=== PATIENT | female | born 1945 | race Caucasian/White ===

== ENCOUNTER → 2017-01-19 | Outpatient (CLI) | payer MEDICARE, OTHER ==
[~2017-01-19] MED LIST: Aspirin PO; Atorvastatin Calcium PO; BISO1TAB3 PO; Clopidogrel Bisulfate PO; ESTRADIOL 1 MG PO; NITR0.4T SL; Non Medication Item MC; SULF1TAB35 PO; [UNRECOGNIZED DRUG - OTHER] IM
--- NOTE | 2017-01-21 10:59 | Diagnostic Imaging Report ---
Bilateral screening mammogram 2D views with tomosynthesis The current study was also evaluated with a Computer Aided Detection (CAD) system. INDICATION: Screening. No current complaints stated on the questionnaire. COMPARISON: 12/03/15 FINDINGS: The breasts are composed of heterogeneously dense parenchyma which may decrease mammographic sensitivity. Benign-appearing calcifications are seen. Allowing for technique and positional differences, no suspicious change is seen. IMPRESSION: Dense breasts with no definite change. ACR BI-RADS Category 2: Benign findings. Result letter will be mailed to the patient. Note: At least 10% of breast cancer is not imaged by mammography. Dictated by: Dictated on workstation # [id number]
== END ==
LOC: RAD 08:53
PROVIDERS: ATTEND Family Medicine
DX: Z12.31 Encounter for screening mammogram for malignant neoplasm of breast (principal)
CPT/HCPCS: 77067

== ENCOUNTER 2017-08-23 12:48 | Emergency (ER) | payer MEDICARE, OTHER ==
[~2017-08-23] VITALS: Ht 162.6 cm; Wt 59.0 kg
[2017-08-23] MEDS ORDERED: ASPIRIN 81 MG CHEW (CHILDREN'S ASA) PO ONE (13:15)
[2017-08-23 13:21] LABS: BASOPHILS # (AUTO) 0.1 10^3/uL (0.0-0.1); BASOPHILS % (AUTO) 1 % (0-10); EOSINOPHILS # (AUTO) 0.1 10^3/uL (0.0-0.3); EOSINOPHILS % (AUTO) 1 % (0-10); HEMATOCRIT 43 % (35-52); HEMOGLOBIN 14.5 G/DL (11.5-16.0); LYMPHOCYTES # (AUTO) 2.3 X 10^3 (1.0-4.0); LYMPHOCYTES % (AUTO) 31 % (12-44); MEAN CORPUSCULAR HEMOGLOBIN 30 PG (25-34); MEAN CORPUSCULAR HGB CONC 34 G/DL (32-36); MEAN CORPUSCULAR VOLUME 90 FL (80-99); MEAN PLATELET VOLUME 10.8 FL (7.4-10.4); MONOCYTES # (AUTO) 0.6 X 10^3 (0.0-1.0); MONOCYTES % (AUTO) 8 % (0-12); NEUTROPHILS # (AUTO) 4.3 X 10^3 (1.8-7.8); NEUTROPHILS % (AUTO) 59 % (42-75); PLATELET COUNT 300 10^3/uL (130-400); RED BLOOD COUNT 4.77 10^6/uL (4.35-5.85); RED CELL DISTRIBUTION WIDTH 13.2 % (10.0-14.5); WHITE BLOOD COUNT 7.3 10^3/uL (4.3-11.0)
--- NOTE | 2017-08-23 13:25 | ED Neurological Problem ---
General Chief Complaint: Dizziness/Syncope Stated Complaint: DIZZY SPELLS,CHEST DISCOMFORT Nursing Triage Note: pt reports episodes of dizziness x2 weeks. pt reports episode of lightheadedness/vertigo 1-2 times today worse than previous episodes. pt reports due for a stress test in a couple weeks. pt reports taking 1 nitro stock controller. Nursing Sepsis Screen: No Definite Risk Source: patient Exam Limitations: no limitations (TRACIE WADSWORTH) History of Present Illness Date Seen by Provider: Aug 23, 2017 Time Seen by Provider: 13:12 Initial Comments 72-year-old female patient presents to the emergency Department with reports of intermittent chest pressure and intermittent dizziness/vertigo 2 weeks. Patient does have a history of cardiac stent placement by Dr. Shin in 2014. Patient is scheduled next week with Dr. Lewis for routine follow-up and is scheduled for a cardiac stress test in 2 weeks. Denies shortness of air, numbness, weakness, headache, changes in vision, slurred speech, confusion, facial drooping. Patient does report taking one nitroglycerin prior to arrival. Denies current symptoms. Location Injury Occurred: denies known injury or fall Timing/Duration: other (2 weeks onset, intermittent) Severity: mild (TRACIE WADSWORTH) Allergies and Home Medications Allergies Coded Allergies: Penicillins (Unverified Allergy, Unknown, 01/31/15) Home Medications Bisoprolol Fumarate/Hctz 1 Each Tablet, 1 TAB PO DAILY, (Reported) Nitroglycerin 0.4 Mg Subl, 0.4 MG SL PRN PRN for CHEST PAIN Prescribed by: MICHOACANO SHIN on 02/01/151937 [Aspirin] 81 MG TABEC, 325 MG PO DAILY Prescribed by: MICHOACANO SHIN on 02/01/151937 [Atorvastatin Calcium] 80 MG TABLET, 80 MG PO HS Prescribed by: MICHOACANO SHIN on 02/01/151937 [estradiol 1 mg] , 0.5 MG PO DAILY, (Reported) Constitutional: see HPI, No chills, No diaphoresis, dizziness, No fever, No malaise, No weakness Eyes: No Symptoms Reported Ears, Nose, Mouth, Throat: no symptoms reported Respiratory: No cough, No dyspnea on exertion, No hemoptysis, No orthopnea, No short of breath Cardiovascular: see HPI, chest pain, No edema, No palpitations, No syncope, other (lightheaded/vertigo intermittently 2 weeks (denies current symptoms)) Gastrointestinal: No hematemesis, No heartburn, No loss of appetite, No melena , No nausea, No vomiting, other (epigastric pain intermittently 2 weeks) Genitourinary: no symptoms reported Musculoskeletal: no symptoms reported Skin: no symptoms reported Psychiatric/Neurological: No Symptoms Reported (TRACIE WADSWORTH) All Other Systems Reviewed Negative Unless Noted: Yes (Negative excepted noted.) (TRACIE WADSWORTH) Past Fztkprb-Jkcroj-Asyjqx Hx Patient Social History Alcohol Use: Rarely Uses Recreational Drug Use: No Smoking Status: Never a Smoker Recent Foreign Travel: No Contact w/Someone Who Travel: No Recent Infectious Disease Expo: No Physical Abuse: No Sexual Abuse: No Mistreated: No Fear: No (TRACIE WADSWORTH) Immunizations Up To Date Date of Pneumonia Vaccine: Feb 01, 2015 (TRACIE WADSWORTH) Surgeries History of Surgeries: Yes Surgeries: Coronary Stent, Hysterectomy (TRACIE WADSWORTH) Respiratory History of Respiratory Disorde: No (TRACIE WADSWORTH) Cardiovascular History of Cardiac Disorders: Yes Cardiac Disorders: Coronary Artery Disease, High Cholesterol, Hypertension (TRACIE WADSWORTH) Neurological History of Neurological Disord: No Neurological Disorders: Headaches /Migraines (TRACIE WADSWORTH) Genitourinary History of Genitourinary Disor: No (TRACIE WADSWORTH) Gastrointestinal History of Gastrointestinal Di: No (TRACIE WADSWORTH) Musculoskeletal History of Musculoskeletal Dis: No (TRACIE WADSWORTH) Endocrine History of Endocrine Disorders: No (TRACIE WADSWORTH) Cancer History of Cancer: No (TRACIE WADSWORTH) Psychosocial History of Psychiatric Problem: No Suicide Risk Score: 0 (TRACIE WADSWORTH) Integumentary History of Skin or Integumenta: No (TRACIE WADSWORTH) Blood Transfusions History of Blood Disorders: No (TRACIE WADSWORTH) Reviewed Nursing Assessment Reviewed/Agree w Nursing PMH: Yes (TRACIE WADSWORTH) Family Medical History Significant Family History: No Pertinent Family Hx Family Medial History: Bovine valve G8 BROTHER CABG G8 BROTHER Cardiovascular disease G8 BROTHER Osteoporosis 19 MOTHER, , Age:90 (TRACIE WADSWORTH) Family Medial History: Bovine valve G8 BROTHER CABG G8 BROTHER Cardiovascular disease G8 BROTHER Osteoporosis 19 MOTHER, , Age:90 (SILVANA BRIDGES APRN) Physical Exam Vital Signs Vital Signs - First Documented 08/23/17 13:04 Temp 97.2 Pulse 71 Resp 18 B/P (MAP) 162/65 (97) Pulse Ox 100 (SILVANA BRIDGES APRN) Vital Signs Capillary Refill : Less Than 3 Seconds (TRACIE WADSWORTH) General Appearance: WD/WN, no apparent distress HEENT: PERRL/EOMI, normal ENT inspection, TMs normal, pharynx normal Neck: non-tender, supple, normal inspection, No carotid bruit Respiratory: chest non-tender, lungs clear, normal breath sounds, no respiratory distress, no accessory muscle use Cardiovascular: normal peripheral pulses, regular rate, rhythm, no edema, no murmur Peripheral Pulses: 2+ Carotid (R), 2+ Carotid (L), 2+ Dorsalis Pedis (R), 2+ Left Dors-Pedis (L), 2+ Radial Pulses (R), 2+ Radial Pulses (L) Gastrointestinal: normal bowel sounds, non tender (unable to reproduce epigastric pain on exam.), soft, no organomegaly Back: normal inspection Extremities: no calf tenderness, normal capillary refill, pedal edema (one plus pedal edema bilaterally) Neurologic/Psychiatric: alert, normal mood/affect, oriented x 3 Crainal Nerves: normal hearing, normal speech, PERRL Coordination/Gait: normal finger to nose, normal gait, negative Romberg's sign Motor/Sensory: no motor deficit, no sensory deficit, no pronator drift Skin: normal color, warm/dry (TRACIE WADSWORTH) Progress/Results/Core Measures Results/Orders Lab Results Laboratory Tests Test 08/23/17 13:02 08/23/17 14:39 08/23/17 17:32 Range/Units White Blood Count 7.3 4.3-11.0 10^3/uL Red Blood Count 4.77 4.35-5.85 10^6/uL Hemoglobin 14.5 11.5-16.0 G/DL Hematocrit 43 35-52 % Mean Corpuscular Volume 90 80-99 FL Mean Corpuscular Hemoglobin 30 25-34 PG Mean Corpuscular Hemoglobin Concent 34 32-36 G/DL Red Cell Distribution Width 13.2 10.0-14.5 % Platelet Count 300 130-400 10^3/uL Mean Platelet Volume 10.8 H 7.4-10.4 FL Neutrophils (%) (Auto) 59 42-75 % Lymphocytes (%) (Auto) 31 12-44 % Monocytes (%) (Auto) 8 0-12 % Eosinophils (%) (Auto) 1 0-10 % Basophils (%) (Auto) 1 0-10 % Neutrophils # (Auto) 4.3 1.8-7.8 X 10^3 Lymphocytes # (Auto) 2.3 1.0-4.0 X 10^3 Monocytes # (Auto) 0.6 0.0-1.0 X 10^3 Eosinophils # (Auto) 0.1 0.0-0.3 10^3/uL Basophils # (Auto) 0.1 0.0-0.1 10^3/uL Prothrombin Time 12.4 12.2-14.7 SEC INR Comment 0.9 0.8-1.4 Activated Partial Thromboplast Time 30 24-35 SEC D-Dimer < 0.27 0.00-0.49 UG/ML Sodium Level 139 135-145 MMOL/L Potassium Level 3.7 3.6-5.0 MMOL/L Chloride Level 104 98-107 MMOL/L Carbon Dioxide Level 25 21-32 MMOL/L Anion Gap 10 5-14 MMOL/L Blood Urea Nitrogen 18 7-18 MG/DL Creatinine 0.82 0.60-1.30 MG/DL Estimat Glomerular Filtration Rate > 60 BUN/Creatinine Ratio 22 Glucose Level 109 H 70-105 MG/DL Calcium Level 9.4 8.5-10.1 MG/DL Magnesium Level 2.3 1.8-2.4 MG/DL Total Bilirubin 0.5 0.1-1.0 MG/DL Aspartate Amino Transf (AST/SGOT) 38 H 5-34 U/L Alanine Aminotransferase (ALT/SGPT) 61 H 0-55 U/L Alkaline Phosphatase 83 40-136 U/L Total Creatine Kinase 54 29-168 U/L Creatine Kinase MB 1.2 <6.6 NG/ML Myoglobin 29.5 10.0-92.0 NG/ML Troponin I < 0.30 < 0.30 <0.30 NG/ML B-Type Natriuretic Peptide 44.0 <100.0 PG/ML Total Protein 7.5 6.4-8.2 GM/DL Albumin 4.5 3.2-4.5 GM/DL Urine Color YELLOW Urine Clarity CLEAR Urine pH 5 5-9 Urine Specific [place] 1.015 L 1.016-1.022 Urine Protein NEGATIVE NEGATIVE Urine Glucose (UA) NEGATIVE NEGATIVE Urine Ketones NEGATIVE NEGATIVE Urine Nitrite NEGATIVE NEGATIVE Urine Bilirubin NEGATIVE NEGATIVE Urine Urobilinogen NORMAL NORMAL MG/DL Urine Leukocyte Esterase NEGATIVE NEGATIVE Urine RBC (Auto) 2+ H NEGATIVE Urine RBC RARE /HPF Urine WBC NONE /HPF Urine Squamous Epithelial Cells 0-2 /HPF Urine Crystals NONE /LPF Urine Bacteria NEGATIVE /HPF Urine Casts NONE /LPF Urine Mucus NEGATIVE /LPF Urine Culture Indicated NO (SILVANA BRIDGES APRN) Medications Given in ED Current Medications Medications Dose Ordered Sig/Grace Route Start Time Stop Time Status Last Admin Dose Admin Aspirin 324 mg ONCE ONCE PO 08/23/17 13:15 08/23/17 13:16 DC 08/23/17 13:16 324 MG Gadobutrol 7.5 mmol ONCE ONCE IV 08/23/17 17:15 08/23/17 17:18 DC 08/23/17 17:18 6 MMOL (SILVANA BRIDGES APRN) Vital Signs/I&O Vital Sign - Last 12Hours 08/23/17 13:04 Temp 97.2 Pulse 71 Resp 18 B/P (MAP) 162/65 (97) Pulse Ox 100 (SILVANA BRIDGES APRN) Blood Pressure Mean: 97 ECG Initial ECG Impression Date: Aug 23, 2017 Initial ECG Impression Time: 13:19 Initial ECG Rate: 65 Initial ECG Rhythm: Normal Sinus Initial ECG Comparisson: Unchanged Comment Sinus rhythm with artifact. No STEMI or arrhythmia noted. ECG reviewed and discussed with Dr. Finnegan. (TRACIE WADSWORTH) Diagnostic Imaging Diagonstic Imaging: Xray Plain Films/CT/US/NM/MRI: chest Comments FINDINGS: The lung volumes are normal. No focal consolidation is seen. No large pleural effusion or pneumothorax is seen. The cardiomediastinal silhouette is normal in size and contour. There is aortic atherosclerosis. No acute osseous abnormality is seen. IMPRESSION: No acute pulmonary abnormality seen. Dictated by: Dictated on workstation # [id number] Reviewed: Reviewed by Me (radiology report reviewed by me) Diagonstic Imaging: CT Plain Films/CT/US/NM/MRI: head Comments INDICATION: Dizziness. No prior studies are available for comparison. The ventricles and sulci are within normal limits. No sulcal effacement, midline shift or hemorrhage is detected. Cisterns are patent. The visualized paranasal sinuses are clear. Mastoid air cells are well aerated. IMPRESSION: No acute intracranial process is detected. Dictated by: Dictated on workstation # [id number] Reviewed: Reviewed by Me (radiology report reviewed by me) (TRACIE WADSWORTH) Departure Communication (Admissions) Progress Notes Patient seen and evaluated. Initial labs obtained as well as a chest x-ray, EKG , and CT head. All diagnostic findings were discussed with the patient and . Patient states she does not wish to be admitted to the [facility]. States she would like to be discharged to home. Patient case discussed with Dr. Bullock including history, vital signs, laboratory findings, exam findings, diagnostic study findings, and patient's refusal for admission. Dr. Bullock recommends repeating the troponin at 4 hours as well as MRI of the brain. States if both are negative for acute findings, may proceed with discharge to home with follow-up as an outpatient with him as well as Dr. Lewis. Recommendations by Dr. Bullock discussed with the patient. Patient verbalizes understanding and is agreeable to both the 4 hour troponin at 1700 and MRI brain. 1730 patient care assumed by Silvana Bridges APRN. (TRACIE WADSWORTH) Progress Notes 1736-I've taken over care of this patient at this time. I reviewed her labs and imaging studies so far. MRI is pending. 1818-she reports feeling back to normal at this time. She believes that her symptoms may in large part be due to stress and anxiety as she has a who is unable to care for himself at home and she also cares for 2-year-old. She also states that she's been very anxious for coming stress test (SILVANA BRIDGES APRN) Impression Impression: Primary Impression: CAD (coronary artery disease) Additional Impression: Dizziness Disposition: HOME, SELF-CARE Condition: Stable Departure-Patient Inst. Decision time for Depature: 18:19 (SILVANA BRIDGES APRN) Referrals: PRECIOUS BULLOCK MD (PCP/Family) Primary Care Physician Patient Instructions: NO INSTRUCTIONS GIVEN Add. Discharge Instructions: 1. Return to ER for any concerns 2. Keep her appointment with your physicians 3. All discharge instructions reviewed with patient and/or family. Voiced understanding. Copy Copies To 1: WHIT LEWIS MD FACP FAC CCDS; PRECIOUS BULLOCK MD, GRETCHEN L PA Aug 23, 2017 13:25 SILVANA BRIDGES APRN Aug 23, 2017 17:36
[2017-08-23 13:32] LABS: INR 0.9 (0.8-1.4); PROTHROMBIN TIME PATIENT 12.4 SEC (12.2-14.7)
[2017-08-23 13:40] LABS: ALANINE AMINOTRANSFERASE 61 U/L (0-55); ALBUMIN 4.5 GM/DL (3.2-4.5); ALKALINE PHOSPHATASE 83 U/L (40-136); BILIRUBIN,TOTAL 0.5 MG/DL (0.1-1.0); BUN/CREATININE RATIO 22; CALCIUM 9.4 MG/DL (8.5-10.1); CARBON DIOXIDE 25 MMOL/L (21-32); CHLORIDE 104 MMOL/L (98-107); CREATINE KINASE 54 U/L (29-168); CREATININE SERUM 0.82 MG/DL (0.60-1.30); GFR ESTIMATED > 60; GLUCOSE 109 MG/DL (70-105); MAGNESIUM 2.3 MG/DL (1.8-2.4); POTASSIUM 3.7 MMOL/L (3.6-5.0); SODIUM 139 MMOL/L (135-145); TOTAL PROTEIN 7.5 GM/DL (6.4-8.2)
--- NOTE | 2017-08-23 13:45 | Diagnostic Imaging Report ---
Patient History: Dizziness, lightheadedness. Technique: Single frontal view of the chest Comparison: 01/31/2015 FINDINGS: The lung volumes are normal. No focal consolidation is seen. No large pleural effusion or pneumothorax is seen. The cardiomediastinal silhouette is normal in size and contour. There is aortic atherosclerosis. No acute osseous abnormality is seen. IMPRESSION: No acute pulmonary abnormality seen. Dictated by: Dictated on workstation # [id number]
--- NOTE | 2017-08-23 13:54 | Diagnostic Imaging Report ---
PROCEDURE: CT head without contrast. TECHNIQUE: Multiple contiguous axial images were obtained through the brain without the use of intravenous contrast. INDICATION: Dizziness. No prior studies are available for comparison. The ventricles and sulci are within normal limits. No sulcal effacement, midline shift or hemorrhage is detected. Cisterns are patent. The visualized paranasal sinuses are clear. Mastoid air cells are well aerated. IMPRESSION: No acute intracranial process is detected. Dictated by: Dictated on workstation # [id number]
[2017-08-23 14:05] LABS: CREATINE KINASE MB 1.2 NG/ML (<6.6); MYOGLOBIN SERUM 29.5 NG/ML (10.0-92.0)
[2017-08-23] MEDS ORDERED: NS IV 1000 ML 1,000 ML IV ONE (14:24)
[2017-08-23 14:47] LABS: BILIRUBIN,URINE NEGATIVE (NEGATIVE); CLARITY,URINE CLEAR; COLOR,URINE YELLOW; GLUCOSE, URINE (UA) NEGATIVE (NEGATIVE); KETONES,URINE NEGATIVE (NEGATIVE); LEUKOCYTE ESTERASE ,URINE NEGATIVE (NEGATIVE); NITRITE,URINE NEGATIVE (NEGATIVE); PH,URINE 5 (5-9); PROTEIN,URINE NEGATIVE (NEGATIVE); UROBILINOGEN,URINE NORMAL (NORMAL)
[2017-08-23 14:57] LABS: BACTERIA,URINE NEGATIVE /HPF; RBC,URINE RARE /HPF
[2017-08-23 14:58] LABS: SQUAMOUS EPITHELIAL CELL,UR 0-2 /HPF
[2017-08-23] MEDS ORDERED: GADOBUTROL 7.5 MMOL/7.5 ML (GADAVIST) VIAL IV ONE (17:15)
--- NOTE | 2017-08-23 17:26 | Diagnostic Imaging Report ---
INDICATION: Dizziness PROCEDURE: MR angiography of the head obtained with [id number] images without contrast and 3D reconstructions DESCRIPTION OF PROCEDURE: The distal internal carotid arteries, anterior cerebral arteries, and middle cerebral arteries are patent and without stenosis or aneurysmal disease. The distal vertebral arteries and basilar artery and posterior cerebral arteries are patent and without evidence of significant focal stenosis or aneurysmal disease. IMPRESSION: Unremarkable MR angiography of the head. Dictated by: Dictated on workstation # [id number]
--- NOTE | 2017-08-23 17:49 | Diagnostic Imaging Report ---
PROCEDURE: MR imaging of the brain with and without contrast. TECHNIQUE: Multiplanar, multisequence MR imaging of the brain was performed with and without contrast. DATE: August 23, 2017. COMPARISON: CT head August 23, 2017. HISTORY: 72-year-old female, dizziness. FINDINGS: There is no restricted diffusion. There are no areas of abnormal intracranial susceptibility. The ventricles and CSF spaces are normal in size and configuration for patient age. There is no abnormal extra axial fluid collection. There is no acute intracranial hemorrhage. There is no mass effect or midline shift. There are areas of T2 and FLAIR hyperintense signal in the periventricular and subcortical white matter which are nonspecific but most likely reflect mild changes of chronic small vessel ischemic disease. There is no abnormal intracranial enhancement. There is normal aeration of the visualized paranasal sinuses and mastoid air cells. IMPRESSION: 1. No identified acute intracranial abnormality. 2. Mild changes of chronic small vessel ischemic disease. Dictated by: Dictated on workstation # [id number]
[2017-08-23 18:25] VITALS: BP 153/67
== END 2017-08-23 18:25 | disposition home or self-care (01) ==
LOC: EDUNIT# 12:48 → ER 12:50
DX: I25.10 Atherosclerotic heart disease of native coronary artery without angina pectoris (principal); R42 Dizziness and giddiness; G43.909 Migraine, unspecified, not intractable, without status migrainosus; E78.00 Pure hypercholesterolemia, unspecified; I10 Essential (primary) hypertension; Z95.5 Presence of coronary angioplasty implant and graft; Z90.710 Acquired absence of both cervix and uterus; Z79.82 Long term (current) use of aspirin; Z88.0 Allergy status to penicillin
CPT/HCPCS: 36415; 70450; 70544; 70553; 71045; 80053; 81000; 82550; 82553; 83735; 83874; 83880; 84484; 85025; 85379; 85610; 85730; 93005; 93041

== ENCOUNTER → 2017-09-07 | Outpatient (CLI) | payer MEDICARE, OTHER ==
[~2017-09-07] VITALS: Ht 165.1 cm; Wt 62.1 kg
[~2017-09-07] MED LIST changes: +CATHETER FLUSH 10 ML SYR IV PRN; +REGADENOSON 0.4 MG/5 ML SYR (LEXISCAN) IV ONE
[2017-09-07 13:12] VITALS: BP 146/83
--- NOTE | 2017-09-07 18:00 | STRESS TEST ---
DATE OF SERVICE: 09/07/2017 RESTING AND POST REGADENOSON TECHNETIUM-99M TETROFOSMIN SPECT CT IMAGING ORDERING PHYSICIAN: Dr. Lewis. CLINICAL DIAGNOSES: Coronary artery disease, hypertension. Baseline images were carried out after injection of 10.61 mCi of technetium 99-m Tetrofosmin. This was followed by 0.4 mg regadenoson and 27.6 mCi of technetium-99m Tetrofosmin for stress imaging. The electrocardiogram showed sinus rhythm at baseline and it did not change significantly with the regadenoson infusion. The study had initially been started out as a treadmill study, which she was not able to walk on a treadmill for any significant length of time and this study was changed to a pharmacologic myocardial perfusion study. The electrocardiogram exhibited nonspecific, subtle ST segment abnormality throughout the study. Overall, she tolerated the procedure well. Review of images at rest and following stress does not indicate any distinct perfusion defects consistent with significant myocardial ischemia or infarction. Gated images show normal global left ventricular systolic function with normal regional wall motion. Left ventricular ejection fraction is calculated to be 71%. Left ventricular end diastolic volume is 30 mL. TID is absent (0.81). CONCLUSIONS: 1. No evidence of significant myocardial ischemia or infarction on this study. 2. Normal regional wall motion. 3. Normal global left ventricular systolic function with a calculated ejection fraction 71%. Job ID: [id number] DocumentID: [id number] Dictated Date: 09/07/2017 14:51:26 Processor Helper Date: 09/07/2017 17:59:56 Dictated By: WHIT LEWIS MD, MA, FACP, FACC, MTDD
== END ==
LOC: CARD 11:15
PROVIDERS: ATTEND Internal Medicine Cardiovascular Disease
DX: I25.10 Atherosclerotic heart disease of native coronary artery without angina pectoris (principal); I10 Essential (primary) hypertension; I65.29 Occlusion and stenosis of unspecified carotid artery
CPT/HCPCS: 78452; 93017

== ENCOUNTER → 2018-01-31 | Outpatient (CLI) | payer MEDICARE, OTHER ==
[~2018-01-31] MED LIST changes: -CATHETER FLUSH 10 ML SYR IV PRN; -REGADENOSON 0.4 MG/5 ML SYR (LEXISCAN) IV ONE
--- NOTE | 2018-01-31 09:21 | Diagnostic Imaging Report ---
INDICATION: Routine screening. COMPARISON: 01/19/2017 and 12/03/2015. TECHNIQUE: 2D and 3D bilateral screening mammography was performed with CAD. FINDINGS: Scattered fibroglandular densities are identified bilaterally. The parenchymal pattern appears stable. There are scattered benign-appearing calcifications bilaterally. No mass or malignant appearing microcalcifications are seen. The axillae are unremarkable. IMPRESSION: No mammographic features suspicious for malignancy are identified. ACR BI-RADS Category 2: Benign findings. Result letter will be mailed to the patient. Note: At least 10% of breast cancer is not imaged by mammography. Dictated by: Dictated on workstation # [id number]
== END ==
LOC: RAD 07:57
PROVIDERS: ATTEND Family Medicine
DX: Z12.31 Encounter for screening mammogram for malignant neoplasm of breast (principal)
CPT/HCPCS: 77067

== ENCOUNTER 2018-03-01 10:54 | Day surgery (SDC) | payer MEDICARE, OTHER ==
[~2018-03-01] VITALS: Ht 165.1 cm; Wt 62.1 kg
[2018-03-01] VITALS (16 sets, daily range): BP systolic 98–149; BP diastolic 68–103
[2018-03-01] MEDS ORDERED: NS IV 1000 ML 2,000 ML ONE (11:01)
[2018-03-01] MEDS ORDERED: LIDOCAINE 1% INJ 20 ML 20 ML VIAL ONE (11:01)
[2018-03-01] MEDS ORDERED: HEParin 1000 UNIT/ML (10ML VIAL) FOR BOLUS ONE (11:01)
[2018-03-01] MEDS ORDERED: NS IV 1000 ML 1,000 ML ONE (11:01)
[2018-03-01 11:34] LABS: HEMOGLOBIN 14.5 G/DL (11.5-16.0); RED BLOOD COUNT 4.77 10^6/uL (4.35-5.85); RED CELL DISTRIBUTION WIDTH 13.5 % (10.0-14.5); WHITE BLOOD COUNT 8.4 10^3/uL (4.3-11.0)
[2018-03-01] MEDS ORDERED: NS IV 1000 ML 1,000 ML IV ONE (11:45)
[2018-03-01 11:47] LABS: PROTHROMBIN TIME PATIENT 12.6 SEC (12.2-14.7)
[2018-03-01 11:54] LABS: ALANINE AMINOTRANSFERASE 32 U/L (0-55); ALBUMIN 4.6 GM/DL (3.2-4.5); ALKALINE PHOSPHATASE 77 U/L (40-136); BILIRUBIN,TOTAL 0.6 MG/DL (0.1-1.0); BUN/CREATININE RATIO 18; CALCIUM 9.7 MG/DL (8.5-10.1); CARBON DIOXIDE 25 MMOL/L (21-32); CHLORIDE 103 MMOL/L (98-107); CHOLESTEROL 137 MG/DL (< 200); GFR ESTIMATED > 60; GLUCOSE 111 MG/DL (70-105); HDL CHOLESTEROL 44 MG/DL (40-60); POTASSIUM 3.5 MMOL/L (3.6-5.0); SODIUM 138 MMOL/L (135-145); TOTAL PROTEIN 7.7 GM/DL (6.4-8.2); TRIGLYCERIDES 145 MG/DL (<150); VLDL CHOLESTEROL 29 MG/DL (5-40)
[2018-03-01] MEDS ORDERED: BISO1TAB6 PO (12:58)
[2018-03-01] MEDS ORDERED: ESTR1TAB27 PO (12:58)
[2018-03-01] MEDS ORDERED: ATOR80TA76 PO (12:58)
[2018-03-01] MEDS ORDERED: OMG1KC PO (13:01)
[2018-03-01] MEDS ORDERED: CALC-654 PO (13:01)
[2018-03-01] MEDS ORDERED: NITR0.4T39 SL (13:01)
[2018-03-01] MEDS ORDERED: ASPI-983 PO (13:01)
[2018-03-01] MEDS ORDERED: fentaNYL INJECTION 100 MCG/2 ML AMP ONE (13:41)
[2018-03-01] MEDS ORDERED: diphenhydrAMINE 50 MG/ML INJ (BENADRYL) ONE (13:41)
[2018-03-01] MEDS ORDERED: MIDAZOLAM 5 MG/5 ML (VERSED) VIAL ONE (13:41)
--- NOTE | 2018-03-01 14:13 | Cardiac Procedure Note-CS/ASA ---
Pre-Procedure Note Pre-Op Procedure Note H&P Reviewed The H&P was reviewed, patient examined and no changes noted. Date H&P Reviewed: Mar 01, 2018 Time H&P Reviewed: 14:13 Conscious Sedation Pre-Proced Time Reviewed: 14:13 ASA Class: 3 Airway Mallampati Classification: (qagan tayagungin appropriate class) I. II. III, IV Lungs Heart ASA score ASA 1: a normal healthy patient ASA 2: a patient with a mild systemic disease (mid diabetes, controlled hypertension, obesity ASA 3: a patient with a severe systemic disease that limits activity (angina , COPD, prior Myocardial infarction) ASA 4: a patient with an incapacitating disease that is a constant threat to life (CHF, renal failure) ASA 5: a moribund patient not expected to survive 24 hrs. (ruptured aneurysm) ASA 6: a declared brain patient whose organs are being harvested. For emergent operations, add the letter E after the classification Grade 2 Sedation Plan: Analgesia, Amnesia, Plan communicated to team members, Discussed options with patient/fam, Discussed risks with patient/fam Note The patient is an appropriate candidate to undergo the planned procedure, sedation, and anesthesia. The patient immediately re-assessed prior to indication. WHIT LANDEROS MD FACP FAC CCDS Mar 01, 2018 14:13
[2018-03-01] MEDS ORDERED: EPTIFIBATIDE BOLUS 10 ML IV ONE (14:21)
[2018-03-01] MEDS ORDERED: NITRO DRIP 25000 MCG/D5W 250 ML IV ONE (14:22)
[2018-03-01] MEDS ORDERED: KCL 20 MEQ TAB (K-DUR) PO NR (15:15)
[2018-03-01] MEDS ORDERED: PATIENT MAY USE OWN MEDS, ALL PO SCH (15:15)
[2018-03-01] MEDS ORDERED: NITROGLYCERIN 0.4 MG SL TABS BTL 25'S SL PRN (15:15)
[2018-03-01] MEDS ORDERED: ACETAMINOPHEN 325 MG TABLET PO PRN (15:15)
[2018-03-01] MEDS ORDERED: ASPIRIN 81 MG CHEW (CHILDREN'S ASA) PO NR (15:15)
[2018-03-01] MEDS ORDERED: CLOPIDOGREL 300 MG (PLAVIX) TABLET PO NR (15:15)
--- NOTE | 2018-03-01 15:21 | CARDIAC CATHETERIZATION ---
DATE OF SERVICE: 03/01/2018 CARDIAC CATHETERIZATION AND CORONARY INTERVENTION REPORT The patient is a 73-year-old lady who has had interventions to the left anterior descending and right coronary artery by Dr. Shin in 2015. She has recurrent angina. Cardiac catheterization was carried out today after having obtained an informed consent. PROCEDURE: She was brought to the cardiac catheterization laboratory in a fasting state. Right groin was prepared and draped in the usual sterile fashion. Lidocaine 1% local anesthesia. Modified Seldinger technique was used to advance a 5-Ugandan sheath in right femoral artery. A 5-Ugandan JL4 catheter for left coronary angiography. A 5-Ugandan JR4 catheter for right coronary angiography, 5-Ugandan pigtail catheter was used for left heart catheterization and left ventricular angiography. PERCUTANEOUS INTERVENTION OF THE RIGHT CORONARY ARTERY: Following completion of the diagnostic procedure, we carried out percutaneous intervention to the distal right coronary artery with the patient had 95% in-stent restenosis. We exchanged the sheath over a wire for a 6-Ugandan sheath. We gave 4000 units of intravenous heparin and a double bolus of Integrilin was also given during the procedure. We used a 6-Ugandan JR4 guide catheter to engage the right coronary artery. We advanced a BMW wire across the lesion and the tip was placed in the posterior descending branch of right coronary artery. She is known to have a 3.0 mm x 20 mm Promus Premier stent extending from the distal right coronary artery into the posterior descending branch and this was exhibiting 95% in-stent restenosis. We advanced an Emerge 2.75 x 15 mm balloon to the lesion and balloon inflation was carried out to 16 atmospheres. Subsequent angiography revealed 0% residual stenosis at the previous site of 95% stenosis in the distal right coronary artery. Flow throughout the vessel is normal. Angioplasty equipment was removed. Angiography of the right femoral artery was carried out through the sheath. Mynx was used to achieve hemostasis. HEMODYNAMICS: Left ventricular end-diastolic pressure following coronary angiography was 10 mmHg. There was no significant pressure gradient on pullback across the aortic valve. Ascending aortic pressure was 116/67 with a mean of 90 mmHg. LEFT VENTRICULAR ANGIOGRAPHY: Left ventricular angiography was carried out in the right anterior oblique projection. Global left ventricular systolic function normal. No regional wall motion abnormality was seen. Left ventricular ejection fraction was approximately 60% to 65%. There does not appear to be significant mitral regurgitation. CORONARY ANGIOGRAPHY: Left coronary calcification is present. Left main coronary artery does not exhibit significant obstructive disease. Left anterior descending artery has a long-stented segment (known to be an overlapping Promus Premier 2.5 x 38 and 3.5 x 12 mm stents). The stented segment does not exhibit significant in-stent restenosis. The first diagonal branch of the left anterior descending artery has also previously been stented (details unknown). These stents are widely patent. The left anterior descending and the left circumflex arteries have mild plaque. The right coronary artery is dominant. It is known to have 4.0 x 20 mm and 4.0 x 8 mm overlapping stents in the proximal ostial right coronary artery and these were found to be widely patent. The distal right coronary artery, extending into the posterior descending branch. The right coronary artery, is known to have Promus Premier 3.0 mm x 20 mm stent that was exhibiting 95% in-stent restenosis and to this successful balloon angioplasty was carried out which improved the stenosis to 0% residual. Flow throughout the vessel is normal. Right coronary artery is dominant. CONCLUSIONS: 1. Coronary artery disease primarily consisting of 95% in-stent restenosis in the distal right coronary artery to which successful balloon angioplasty was carried out which reduced the stenosis to 0% residual. Widely patent stents are seen in the mid left anterior descending, and proximal first diagonal, and ostial and proximal right coronary arteries. The stent that was intervened on extends from the distal right coronary into the posterior descending and does not exhibit significant residual stenosis following today's balloon angioplasty. 2. Normal global left ventricular systolic function with ejection fraction approximately 60% to 65%. 3. No significant mitral regurgitation. 4. Normal left ventricular end-diastolic pressure and the vessels. Job ID: [id number] DocumentID: [id number] Dictated Date: 03/01/2018 14:51:03 Ink Technician Date: 03/01/2018 15:21:02 Dictated By: WHIT LANDEROS MD, MA, FACP, FACC,
[2018-03-01] MEDS: NS IV 1000 ML 1,000 ML IV SCH (16:45)
[2018-03-01] MEDS ORDERED: CALCIUM CARB + VIT D 600 MG (CALCARB + D) TAB PO SCH (17:00)
[2018-03-01] MEDS ORDERED: ESTRADIOL 1 MG TAB (ESTRACE) PO SCH (18:00)
[2018-03-01] MEDS ORDERED: BISOPROLOL/HCTZ 10/6.25 MG (ZIAC) TAB PO SCH (18:00)
[2018-03-01] MEDS ORDERED: OMEGA 3 (FISH OIL) 1000 MG CAP PO SCH (21:00)
[2018-03-01] MEDS ORDERED: ATORVASTATIN 80 MG (LIPITOR) TABLET PO SCH (21:00)
[2018-03-02 03:43] VITALS: BP 115/75
[2018-03-02 04:21] LABS: BASOPHILS % (AUTO) 1 % (0-10); EOSINOPHILS # (AUTO) 0.1 10^3/uL (0.0-0.3); EOSINOPHILS % (AUTO) 1 % (0-10); HEMATOCRIT 37 % (35-52); HEMOGLOBIN 12.4 G/DL (11.5-16.0); LYMPHOCYTES # (AUTO) 2.1 X 10^3 (1.0-4.0); LYMPHOCYTES % (AUTO) 35 % (12-44); MEAN CORPUSCULAR HEMOGLOBIN 31 PG (25-34); MEAN CORPUSCULAR HGB CONC 33 G/DL (32-36); MEAN CORPUSCULAR VOLUME 92 FL (80-99); MEAN PLATELET VOLUME 10.6 FL (7.4-10.4); MONOCYTES # (AUTO) 0.5 X 10^3 (0.0-1.0); MONOCYTES % (AUTO) 7 % (0-12); NEUTROPHILS # (AUTO) 3.5 X 10^3 (1.8-7.8); NEUTROPHILS % (AUTO) 56 % (42-75); PLATELET COUNT 249 10^3/uL (130-400); RED BLOOD COUNT 4.05 10^6/uL (4.35-5.85); RED CELL DISTRIBUTION WIDTH 13.4 % (10.0-14.5); WHITE BLOOD COUNT 6.2 10^3/uL (4.3-11.0)
[2018-03-02 04:51] LABS: BUN/CREATININE RATIO 19; CALCIUM 8.6 MG/DL (8.5-10.1); CARBON DIOXIDE 19 MMOL/L (21-32); CHLORIDE 111 MMOL/L (98-107); CREATININE SERUM 0.69 MG/DL (0.60-1.30); GFR ESTIMATED > 60; GLUCOSE 85 MG/DL (70-105); MAGNESIUM 2.4 MG/DL (1.8-2.4); SODIUM 140 MMOL/L (135-145)
[2018-03-02] MEDS: NS IV 1000 ML 1,000 ML IV SCH (05:15)
[2018-03-02 08:30] VITALS: BP 111/70
--- NOTE | 2018-03-02 08:59 | Progress Note-Cardiology ---
Cardiology SOAP Progress Note Subjective: Sitting up in bed dressed. Wants to go home. Has been up ambulating in the hallways. No c/o CP, palpitations, syncope, dyspnea or near syncope. No c/o groin site discomfort. Objective: I&O/Vital Signs 03/02/18 03/02/18 03/02/18 03/02/18 01:00 03:43 08:30 08:30 Temp 97.4 98.9 Pulse 60 57 73 Resp 16 20 B/P (MAP) 115/75 (88) 111/70 (84) Pulse Ox 97 96 O2 Delivery Room Air Room Air Room Air 03/02/18 03/02/18 08:44 10:00 Pulse 67 67 Resp 20 B/P (MAP) 111/70 Pulse Ox 96 O2 Delivery Room Air 03/02/18 00:00 Intake Total 486 ml Balance 486 ml Weight (Pounds): 137 Weight (Ounces): 0.0 Weight (Calculated Kilograms): 62.694630 Side: right Groin site without hematoma: Yes Condition: DP/PT pulses palpable, extremity w/d/p Bruising: mild bruising Constitutional: AAO x 3 Respiratory: No accessory muscle use, No respiratory distress; chest expansion is symmetric, chest is bilaterally symmetric, lungs clear to auscultation Cardiovascular: regular rate-rhythm; No JVD; S1 and S2 Gastrointestional: No tender; soft, audible bowel sounds Extremities: no lower extremity edema bilateral Neurologic/Psychiatric: grossly intact Skin: No rash, No ulcerations Results/Procedures: Labs Laboratory Tests 03/02/18 03:20: White Blood Count 6.2, Red Blood Count 4.05L, Hemoglobin 12.4, Hematocrit 37, Mean Corpuscular Volume 92, Mean Corpuscular Hemoglobin 31, Mean Corpuscular Hemoglobin Concent 33, Red Cell Distribution Width 13.4, Platelet Count 249, Mean Platelet Volume 10.6H, Neutrophils (%) (Auto) 56, Lymphocytes (%) (Auto) 35 , Monocytes (%) (Auto) 7, Eosinophils (%) (Auto) 1, Basophils (%) (Auto) 1, Neutrophils # (Auto) 3.5, Lymphocytes # (Auto) 2.1, Monocytes # (Auto) 0.5, Eosinophils # (Auto) 0.1, Basophils # (Auto) 0.0 03/02/18 04:07: Sodium Level 140, Potassium Level 4.0, Chloride Level 111H, Carbon Dioxide Level 19L, Anion Gap 10, Blood Urea Nitrogen 13, Creatinine 0.69, Estimat Glomerular Filtration Rate > 60, BUN/Creatinine Ratio 19, Glucose Level 85, Calcium Level 8.6, Magnesium Level 2.4 Procedures Post cardiac cath with successful intervention on 03-01-18. Please refer to Dr. Lewis's cardiac cath report for details. A/P: Assessment: CAD: Last card cath on 03/01/18: 95% in-stent restenosis in the distal right coronary artery to which successful balloon angioplasty was carried out which reduced the stenosis to 0% residual. Widely patent stents are seen in the mid left anterior descending, and proximal first diagonal, and ostial and proximal right coronary arteries. The stent that was intervened on extends from the distal right coronary into the posterior descending and does not exhibit significant residual stenosis following today's balloon angioplasty. Normal global left ventricular systolic function with ejection fraction approximately 60% to 65%. No significant mitral regurgitation. Normal left ventricular end- diastolic pressure and the vessels. Previously on 02/01/15 she underwent stenting of the mid LAD with overlapping Promus Justin 2.5x38 and 3.5x12 stents (2.5 post- dilated to 3.5 and 3.5 postdilated to approx 4.5) and ballon angioplasty of a diag by Dr Shin. On 02/04/15, she underwent Promus Justin 3x20 stenting of distal RCA to PDA, and 4x20 and 4x8 overlapping stents to the prox and ostial RCA MPI of September 07, 2017 showed no evidence of ischemia or infarction. LVEF 71% Hyperlipidemia - statin therapy Hypertension Echo of 03/28/16: LVEF 55%, triv M and TR, no valvular stenosis, PASP WNL Minimal bilat carotid plaque per u/s of April 2016 Plan: Discussed coronary status with her and results of cardiac cath Risk factor modification discussed OK to discharge home today Continue current medication regimen Add Plavix to the regimen Out pt f/u in 2 weeks Physician Assessment Physician Assessment No cp or palp or syncope or shortness of breath or groin/leg discomfort. Wishes to go home Lungs: clear Cor: reg Ext: no c/c/e. Mild to mod bruising at site of access in the R groin. Distal pulses palpable A&R * As documented in our note above that I updated and as noted below * I discussed the details of card cath and cor interventions and med changes * Plavix added * Outpt f/u advised * Risk factor modification reviewed and questions answered SAMANTHA ALFARO MEDICAL ANTHROPOLOGIST Mar 02, 2018 08:59 WHIT LEWIS MD [facility] CCDS Mar 02, 2018 12:44
[2018-03-02] MEDS ORDERED: CLOPIDOGREL 75 MG (PLAVIX) TABLET PO SCH (09:00)
[2018-03-02] MEDS ORDERED: ASPI-999 PO (09:00)
[2018-03-02] MEDS ORDERED: ASPIRIN 81 MG CHEW (CHILDREN'S ASA) PO SCH (09:00)
[2018-03-02] MEDS ORDERED: CLOP75TA28 PO (09:00)
--- NOTE | 2018-03-02 09:02 | Discharge Inst-Cardiology ---
Discharge Inst-Cardiac Discharge Medications New Medications: Aspirin (Aspirin) 81 Mg Tab.chew 81 MG PO DAILY, #120 TAB 5 Refills Clopidogrel Bisulfate (Clopidogrel) 75 Mg Tablet 75 MG PO DAILY, #30 TAB 5 Refills Continued Medications: Atorvastatin Calcium (Atorvastatin Calcium) 80 Mg Tablet 80 MG PO HS, TAB Bisoprolol Fumarate/Hctz (Bisoprolol-Hctz 10-6.25 mg Tab) 1 Each Tablet 1 TAB PO 1800, TAB Calcium Carbonate/Vitamin D3 (Calcium 500 + D Tablet) 1 Each Tablet 1 TAB PO HS, TAB Estradiol (Estrace Tablet) 1 Mg Tablet 0.5 MG PO 1800, TAB TAKES 1/2 (1MG) TABLET Nitroglycerin (Nitroglycerin) 0.4 Mg Tab.subl 0.4 MG SL UD PRN for CHEST PAIN, TAB [place] 3 Polyunsat Fatty Acids (Fish Oil 1,000 mg Capsule) 1,000 Mg Cap 2000 MG PO HS, CAP Discontinued Medications: Aspirin (Aspirin EC) 81 Mg Tablet.dr 81 MG PO HS, TAB New, Converted or Re-Newed RX: Transmitted to Pharmacy Patient Instructions Patient Instructions: Please schedule follow up appointment with Dr. Lewis in 2 weeks SAMANTHA ALFARO Mar 02, 2018 09:02
[2018-03-02 10:00] VITALS: BP 111/70
== END 2018-03-02 10:00 | disposition home or self-care (01) ==
LOC: CATH 10:54 → ICU 15:00 → CATH 03-02 10:00
PROVIDERS: ATTEND Internal Medicine Cardiovascular Disease
DX: T82.855A Stenosis of coronary artery stent, initial encounter (principal); I25.10 Atherosclerotic heart disease of native coronary artery without angina pectoris; I10 Essential (primary) hypertension; E78.5 Hyperlipidemia, unspecified; Z79.82 Long term (current) use of aspirin; Z79.899 Other long term (current) drug therapy; Z95.5 Presence of coronary angioplasty implant and graft
CPT/HCPCS: 36415; 80048; 80053; 80061; 83735; 85025; 85027; 85610; 85730; 87081; 93005; 93458

== ENCOUNTER 2018-09-06 06:59 | Day surgery (SDC) | payer MEDICARE, OTHER ==
[~2018-09-06] VITALS: Ht 160 cm; Wt 61.2 kg
[2018-09-06] VITALS (14 sets, daily range): BP systolic 107–156; BP diastolic 65–112
[~2018-09-06 06:59] MED LIST changes: +ASPI-983 PO; +ASPI-999 PO; +ATOR80TA76 PO; +BISO1TAB6 PO; +CALC-654 PO; +CLOP75TA28 PO; +ESTR1TAB27 PO; +NITR0.4T39 SL; +OMG1KC PO
[2018-09-06] MEDS ORDERED: LIDOCAINE 1% INJ 20 ML 20 ML VIAL ONE (07:10)
[2018-09-06] MEDS ORDERED: HEParin 1000 UNIT/ML (10ML VIAL) FOR BOLUS ONE (07:10)
[2018-09-06] MEDS ORDERED: NS IV 1000 ML 3,000 ML ONE (07:10)
[2018-09-06] MEDS ORDERED: NS IV 1000 ML 1,000 ML IV SCH ×2 (07:15→12:46)
[2018-09-06 07:44] LABS: HEMOGLOBIN 14.5 G/DL (11.5-16.0); MEAN PLATELET VOLUME 10.6 FL (7.4-10.4); RED CELL DISTRIBUTION WIDTH 14.1 % (10.0-14.5); WHITE BLOOD COUNT 5.7 10^3/uL (4.3-11.0)
[2018-09-06] MEDS ORDERED: ASPI-983 PO (07:51)
[2018-09-06 07:56] LABS: INR 0.9 (0.8-1.4); PROTHROMBIN TIME PATIENT 12.6 SEC (12.2-14.7)
[2018-09-06 08:07] LABS: ALANINE AMINOTRANSFERASE 33 U/L (0-55); ALBUMIN 4.8 GM/DL (3.2-4.5); ALKALINE PHOSPHATASE 77 U/L (40-136); BILIRUBIN,TOTAL 0.6 MG/DL (0.1-1.0); BUN/CREATININE RATIO 17; CALCIUM 9.9 MG/DL (8.5-10.1); CARBON DIOXIDE 23 MMOL/L (21-32); CHLORIDE 105 MMOL/L (98-107); CHOLESTEROL 156 MG/DL (< 200); CREATININE SERUM 0.87 MG/DL (0.60-1.30); GFR ESTIMATED > 60; GLUCOSE 115 MG/DL (70-105); HDL CHOLESTEROL 56 MG/DL (40-60); POTASSIUM 3.6 MMOL/L (3.6-5.0); SODIUM 141 MMOL/L (135-145); TOTAL PROTEIN 7.8 GM/DL (6.4-8.2); TRIGLYCERIDES 103 MG/DL (<150); VLDL CHOLESTEROL 21 MG/DL (5-40)
[2018-09-06] MEDS ORDERED: MIDAZOLAM 5 MG/5 ML (VERSED) VIAL ONE (09:20)
[2018-09-06] MEDS ORDERED: fentaNYL INJECTION 100 MCG/2 ML AMP ONE (09:20)
[2018-09-06] MEDS ORDERED: EPTIFIBATIDE BOLUS 20 ML IV ONE (09:58)
[2018-09-06] MEDS ORDERED: NITRO DRIP 25000 MCG/D5W 0 ML IV ONE (10:03)
--- NOTE | 2018-09-06 12:46 | Cardiac Procedure Note-CS/ASA ---
Pre-Procedure Note Pre-Op Procedure Note H&P Reviewed The H&P was reviewed, patient examined and no changes noted. Date H&P Reviewed: Sep 06, 2018 Time H&P Reviewed: 09:30 Conscious Sedation Pre-Proced Time 09:30 ASA Score 3 For ASA 3 and 4: Consider anesthesia and medical clearance. Also, for patients with a history of failed moderate sedation consider anesthesia. Airway Lungs Heart ASA score ASA 1: a normal healthy patient ASA 2: a patient with a mild systemic disease (mid diabetes, controlled hypertension, obesity ASA 3: a patient with a severe systemic disease that limits activity (angina , COPD, prior Myocardial infarction) ASA 4: a patient with an incapacitating disease that is a constant threat to life (CHF, renal failure) ASA 5: a moribund patient not expected to survive 24 hrs. (ruptured aneurysm) ASA 6: a declared brain- patient whose organs are being harvested. For emergent operations, add the letter E after the classification Mallampati Classification Grade 2 Sedation Plan Analgesia, Amnesia, Plan communicated to team members, Discussed options with patient/fam, Discussed risks with patient/fam The patient is an appropriate candidate to undergo the planned procedure, sedation, and anesthesia. The patient immediately re-assessed prior to indication. WHIT LANDEROS MD FACP FAC CCDS Sep 06, 2018 12:46
[2018-09-06] MEDS ORDERED: NITROGLYCERIN 0.4 MG SL TABS BTL 25'S SL PRN (13:00)
[2018-09-06] MEDS ORDERED: PATIENT MAY USE OWN MEDS, ALL PO SCH (13:00)
[2018-09-06] MEDS ORDERED: ASPI-999 PO (13:18)
[2018-09-06] MEDS ORDERED: CLOP75TA28 PO (13:18)
[2018-09-06] MEDS ORDERED: ASPIRIN 81 MG CHEW (CHILDREN'S ASA) PO NR (13:20)
--- NOTE | 2018-09-06 13:21 | CARDIAC CATHETERIZATION ---
DATE OF SERVICE: 09/06/2018 CARDIAC CATHETERIZATION AND CORONARY INTERVENTION REPORT The patient is a 73-year-old lady, who has a history of coronary artery disease and coronary stenting. She has recently developed symptoms of angina, consistent with her previous angina pectoris. Cardiac catheterization was carried out. Informed consent was obtained for cardiac catheterization, possible ad-hoc coronary intervention. PROCEDURE IN DETAIL: She was brought to the cardiac catheterization laboratory in a fasting state. Right groin was prepared and draped in the usual sterile fashion. Lidocaine 1% was used for local anesthesia. Modified Seldinger technique was used to advance a 5-Trinidadian sheath in the right femoral artery. A 5-Trinidadian JL4 catheter for left coronary angiography and 5-Trinidadian JR4 catheter for right coronary angiography. A 5-Trinidadian pigtail catheter was used for left heart catheterization and left ventricular angiography. PERCUTANEOUS INTERVENTION OF THE RIGHT CORONARY ARTERY: Following completion of the diagnostic procedure, we carried out percutaneous intervention to the right coronary artery where the patient was exhibiting 99% stenosis with slow distal flow in the posterior descending branch of the right coronary artery. This was an in-stent restenosis. We exchanged the sheath over a wire for a 6-Trinidadian sheath. We gave 4000 units intravenous heparin bolus. We gave double bolus of Integrilin during the procedure. We used a 6-Trinidadian JR4 guide catheter to engage the right coronary artery. We used a BMW wire to cross the lesion and the tip of the wire was placed in the distal vessel. We carried out balloon angioplasty with Emerge 3.0 x 15 mm balloon to 8 atmospheres. Subsequent angiography revealed 0% residual stenosis and flow in the posterior descending branch of the right coronary artery improved to normal flow (GAB 3). The patient tolerated the procedure well. The angioplasty equipment was removed. Angiography of the right femoral artery had been carried out through the sheath. Mynx was used to achieve hemostasis. HEMODYNAMICS: Left ventricular end-diastolic pressure following coronary angiography was 12 mmHg. There was no significant pressure gradient on pullback across the aortic valve. Ascending aortic pressure was 104/63 with a mean of 81 mmHg. LEFT VENTRICULAR ANGIOGRAPHY: Left ventricular angiography was carried out in the right anterior oblique projection. Global left ventricular systolic function is normal. No regional wall motion abnormality is seen. Left ventricular ejection fraction is approximately 60%. There does not appear to be significant mitral regurgitation. CORONARY ANGIOGRAPHY: Left coronary calcification is seen. Left main coronary artery does not exhibit significant obstructive disease. Left anterior descending artery has a long stented segment (known to be overlapping Promus Premier 2.5 x 38 and 3.5 x 12 mm stents). These stents do not exhibit significant in-stent restenosis. The first diagonal branch of the left anterior descending artery has also been previously stented (details unknown) and these stents are widely patent. The right coronary artery is dominant. It is known to have 4.0 x 20 mm and 4.0 x 8 mm overlapping stents in the proximal/ostial portion of the right coronary artery and these are widely patent. The distal right coronary artery has a stent that extends into the posterior descending branch and this is known to be Promus Premier 3.0 x 20 mm and was exhibiting 99% stenosis to which successful balloon angioplasty was carried out, which reduced the stenosis to 0% residual and restored normal antegrade flow in the posterior descending branch of the right coronary artery. CONCLUSIONS: 1. Coronary artery disease primarily consisting of 99% in-stent restenosis in the distal right coronary artery to which successful balloon angioplasty was carried out, which reduced it to 0% residual. There are widely patent stents in the mid left anterior descending, proximal first diagonal, and proximal right coronary arteries. 2. Normal global left ventricular systolic function with ejection fraction of 60%. 3. Normal left ventricular end-diastolic pressure. 4. No significant mitral regurgitation. DISCUSSION AND RECOMMENDATIONS: Her previous cardiac regimen is being continued. Aspirin and Plavix are being continued. Job ID: [id number] DocumentID: [id number] Dictated Date: 09/06/2018 13:03:51 Lead Software Tester Date: 09/06/2018 13:21:22 Dictated By: WHIT LANDEROS MD, MA, FACP, FACC,
[2018-09-06] MEDS ORDERED: CLOPIDOGREL 300 MG (PLAVIX) TABLET PO NR (13:30)
[2018-09-06] MEDS ORDERED: BARIUM SUSPENSION 105% (LIQUID POLIBAR PLUS) 240 ML/DOSE PO ONE (14:00)
[2018-09-06] MEDS ORDERED: BARIUM SUSPENSION 60% (LIQUID EZ PAQUE) 240 ML DOSE PO ONE (14:00)
[2018-09-06] MEDS ORDERED: BISOPROLOL/HCTZ 10/6.25 MG (ZIAC) TAB PO SCH (18:00)
[2018-09-06] MEDS ORDERED: ESTRADIOL 1 MG TAB (ESTRACE) PO SCH (18:00)
--- NOTE | 2018-09-06 18:45 | NUR ---
PATIENT BROUGHT TO ROOM 429 VIA WHEELCHAIR ACCOMPANIED BY ANALYTICAL STRATEGIST. BEDSIDE REPORT RECEIVED AND GROIN SITE INSPECTED. PATIENT ORIENTED TO ROOM AND CALL LIGHT. NO COMPLAINTS OF PAIN OR FURTHER NEEDS EXPRESSED AT THIS TIME.
--- NOTE | 2018-09-06 18:45 | NUR ---
Report given to CHRISTIAN Oliva
[2018-09-06] MEDS ORDERED: ATORVASTATIN 80 MG (LIPITOR) TABLET PO SCH (21:00)
[2018-09-06] MEDS ORDERED: CALCIUM CARB + VIT D 600 MG (CALCARB + D) TAB PO SCH (21:00)
[2018-09-06] MEDS ORDERED: OMEGA 3 (FISH OIL) 1000 MG CAP PO SCH (21:00)
[2018-09-07 00:40] VITALS: BP 113/69
[2018-09-07 04:05] VITALS: BP 110/67
[2018-09-07 08:00] VITALS: BP 137/73
[2018-09-07] MEDS ORDERED: ASPIRIN 81 MG CHEW (CHILDREN'S ASA) PO SCH (09:00)
[2018-09-07] MEDS ORDERED: CLOPIDOGREL 75 MG (PLAVIX) TABLET PO SCH (09:00)
--- NOTE | 2018-09-07 09:00 | NUR ---
DRESSED, DC'D OWN TELEMETRY, REFUSED ASSESSMENT, REFUSED RT GROIN ASSESSMENT OR DRESSING REMOVAL. REQUESTING COME NOW FOR DISCHARGE. DR. NAVA MADE AWARE OF PT ANXIOUSLY AWAITING DISCHARGE.
--- NOTE | 2018-09-07 10:06 | Cardiology Discharge Summary ---
Diagnosis/Chief Complaint Date of Admission 09/06/2018 Date of Discharge 09/07/2018 Admission Diagnosis Chest pain Final/Discharge Diagnosis CAD Chief Complaint/HPI Chief Complaint/HPI The patient is a 73-year-old lady, who has a history of coronary artery disease and coronary stenting. She has recently developed symptoms of angina, consistent with her previous angina pectoris. Discharge Summary Procedures Coronary angiography revealed severe in-stent restenosis in the RCA. Successful balloon angioplasty. Discharge Physical Examination Unremarkable. Hospital Course Was the Problem List Reviewed?: Yes Stable. Discussion & Recommendations Discussion Discharge instructions were discussed at length with the patient. Patient will follow with Dr. Lewis. Follow up appt.: Dr. Lewis in 2-3 weeks. Dicharge Diet: Cardiac Diet Activity as Tolerated: Yes Home Medications Reviewed patient Home Medication Reconciliation performed by pharmacy medication reconciliations vacuum technician and/or nursing. Patients Allergies have been reviewed. Discharge Home Medications: Reviewed and agree with Discharge Medication list on patient's Discharge Instruction sheet Condition at discharge Stable. Instructions to patient/family Discussed with the patient. Caitlin NAVA MD Sep 07, 2018 10:06
--- NOTE | 2018-09-07 10:07 | Discharge Inst-Post CATH ---
Discharge Inst-CATH/EP Post Cardiac Cath/EP D/C Inst Follow Up/Plan Dr Lewis in two to three weeks. CARDIAC CATH DISCHARGE INSTRUCTIONS *Hold Metformin for 48 hours post heart cath. ACTIVITY * Go Home directly and rest. * Limit activity of the leg (or wrist if it was used) for 7 days including aerobics, swimming, jogging, bicycling, etc. * Restrict stair-climbing for 7 days if possible, if not, climb up with your non -cath leg, then bring together on the same step. * Avoid lifting, pushing, pulling or excessive movement of the affected extremity for 7 days. * Customary sexual activity may be resumed after 2 days-use caution not to use a position that strains or causes pain to the affected extremity. * No driving for 24 hours. * NO SMOKING. * Avoid straining for bowel movements for 7 days. * Gentle walking on level ground is allowed. * Returning to work will depend on the type of procedure and the results. Your doctor will discuss this with you. CALL YOUR DOCTOR FOR ANY OF THE FOLLOWING: *If bleeding from the puncture site occurs- Apply gentle pressure to site with clean cloth and call your doctor or EMS. * If a knot or lump forms under the skin, increases in size, or causes pain. * If bruising appears to be worsening or moving further down your leg instead of disappearing. * Temperature above 101 F. CARE OF YOUR GROIN INCISION; * Bruising or purple discoloration of the skin near the puncture site is common. * You may shower only, no bathtub bathing for 5 days. Be careful to avoid slipping as your leg may feel stiff. * If a closure device was used on your femoral artery, please see the attached guide regarding care of the device and your leg. * Leave the dressing on, until removed by office staff. CARE OF YOUR WRIST INCISION; * Bruising or purple discoloration of the skin near the puncture site is common. * You may shower. * DO NOT submerge wrist. * Leave dressing on, until removed by office staff.. Caitlin NAVA MD Sep 07, 2018 10:07
--- NOTE | 2018-09-07 10:10 | NUR ---
DC'D PER WC WITH REPOSSESSION AGENT. VERBALIZED UNDERSTANDING OF ALL DC INSTRUCTIONS AND MEDS.
== END 2018-09-07 10:10 | disposition home or self-care (01) ==
LOC: CATH 06:59 → ICU 10:40 → 4TH 18:40 → CATH 09-07 10:10
PROVIDERS: ATTEND Internal Medicine Cardiovascular Disease
DX: T82.855A Stenosis of coronary artery stent, initial encounter (principal); I25.119 Atherosclerotic heart disease of native coronary artery with unspecified angina pectoris; I10 Essential (primary) hypertension; E78.5 Hyperlipidemia, unspecified; Z87.891 Personal history of nicotine dependence; Z79.02 Long term (current) use of antithrombotics/antiplatelets; Z79.82 Long term (current) use of aspirin; Z79.899 Other long term (current) drug therapy; Z95.5 Presence of coronary angioplasty implant and graft
CPT/HCPCS: 36415; 80053; 80061; 85027; 85610; 85730; 87081; 93005; 93458

== ENCOUNTER → 2019-02-01 | Outpatient (CLI) | payer MEDICARE, OTHER ==
--- NOTE | 2019-02-01 15:26 | Diagnostic Imaging Report ---
Indication: Routine screening. Comparison is made with prior mammogram from 01/31/2018 and 01/19/2017. 2-D and 3-D bilateral screening mammography was performed with CAD. Scattered fibroglandular densities are identified bilaterally. Benign calcifications are identified bilaterally. No mass or malignant appearing microcalcifications are seen. The axillae are unremarkable. Impression: BI-RADS category 2 No mammographic features suspicious for malignancy are identified. ACR BI-RADS Category 2: Benign findings. Result letter will be mailed to the patient. Note: At least 10% of breast cancer is not imaged by mammography. Dictated by: Dictated on workstation # [id number]
== END ==
LOC: RAD 09:50
PROVIDERS: ATTEND Family Medicine
DX: Z12.31 Encounter for screening mammogram for malignant neoplasm of breast (principal)
CPT/HCPCS: 77067

== ENCOUNTER → 2019-12-19 | Outpatient (CLI) | payer MEDICARE, OTHER ==
[~2019-12-19] VITALS: Ht 166 cm; Wt 61.0 kg
[~2019-12-19] MED LIST changes: +BISO-3 PO; -BISO1TAB6 PO; +CATHETER FLUSH 10 ML SYR IV PRN; +REGADENOSON 0.4 MG/5 ML SYR (LEXISCAN) IV ONE
[2019-12-19 12:37] VITALS: BP 143/87
[2019-12-19 12:39] VITALS: BP 153/86
--- NOTE | 2019-12-19 16:00 | STRESS TEST ---
DATE OF SERVICE: 12/19/2019 RESTING AND POST REGADENOSON TECHNETIUM-99M TETROFOSMIN SPECT CT IMAGING ORDERING PHYSICIAN: Mirtha Schneider APRN PRIMARY PHYSICIAN: Dr. Bullock. CLINICAL DIAGNOSES: Chest discomfort, coronary artery disease, hypertension. Baseline images were carried out after injection of 10.18 mCi of technetium-99m Tetrofosmin. This was followed by 0.4 mg regadenoson and 31.5 mCi of technetium-99m Tetrofosmin. The electrocardiogram showed sinus rhythm at baseline. There was nonspecific, subtle, ST and T-wave abnormality that became somewhat more prominent following regadenoson infusion. The patient noted shortness of breath. Symptoms resolved in few minutes. Overall, he tolerated the procedure well. Review of images at rest and following stress indicates a small anterolateral perfusion defect that appears transient. Gated images showed normal global left ventricular systolic function with normal regional wall motion. Left ventricular ejection fraction is calculated to be 81%. Left ventricular end-diastolic volume is 42 mL. TID is absent (1.04). CONCLUSIONS: 1. The study is suggestive of minimal amount of anterolateral ischemia. 2. Normal regional wall motion. 3. Normal global left ventricular systolic function with ejection fraction of 81%. Job ID: [id number] DocumentID: [id number] Dictated Date: 12/19/2019 15:35:52 Line Welder Date: 12/19/2019 15:58:12 Dictated By: WHIT LANDEROS MD, MA, FACP, FACC,
== END ==
LOC: CARD 11:21
PROVIDERS: ATTEND Nurse Practitioner Family
DX: I25.10 Atherosclerotic heart disease of native coronary artery without angina pectoris (principal); I77.89 Other specified disorders of arteries and arterioles; I10 Essential (primary) hypertension
CPT/HCPCS: 78452; 93017; A9502

== ENCOUNTER → 2020-03-05 | Outpatient (CLI) | payer MEDICARE, OTHER ==
[~2020-03-05] MED LIST changes: +ASPI-1238 PO; -ASPI-983 PO; -CATHETER FLUSH 10 ML SYR IV PRN; -REGADENOSON 0.4 MG/5 ML SYR (LEXISCAN) IV ONE
--- NOTE | 2020-03-05 19:23 | Diagnostic Imaging Report ---
INDICATION: Routine screening. COMPARISON is made with prior mammograms from 02/01/2019 and 01/31/2018. 2-D and 3-D bilateral screening mammography was performed with CAD. Scattered fibroglandular densities are identified bilaterally. Benign calcifications are noted bilaterally. No mass or malignant appearing microcalcifications are seen. Axillae are unremarkable. IMPRESSION: BI-RADS Category 2 No mammographic features suspicious for malignancy are identified. ACR BI-RADS Category 2: Benign findings. Result letter will be mailed to the patient. Note: At least 10% of breast cancer is not imaged by mammography. Dictated by: Dictated on workstation # [id number]
== END ==
LOC: RAD 13:15
PROVIDERS: ATTEND Family Medicine
DX: Z12.31 Encounter for screening mammogram for malignant neoplasm of breast (principal)
CPT/HCPCS: 77063; 77067

== ENCOUNTER → 2021-03-14 | Outpatient (CLI) | payer MEDICARE, OTHER ==
[~2021-03-14] MED LIST changes: -SULF1TAB35 PO; +SULF1TAB38 PO
--- NOTE | 2021-03-14 13:35 | Diagnostic Imaging Report ---
INDICATION: Routine screening. COMPARISON is made with prior mammograms from 03/05/2020 and 02/01/2019. 2-D and 3-D bilateral screening mammography was performed with CAD. Both breast are heterogeneously dense, limiting the sensitivity of mammography. There are scattered benign-appearing calcifications throughout both breasts. There is a density in the left breast slightly lateral to the nipple line best seen on the CC view at mid depth which appears more prominent than prior studies. This may be inferiorly located on the MLO view. Additional views are recommended. No malignant-appearing microcalcifications are seen. Axillae are unremarkable. IMPRESSION: BI-RADS 0 Left breast density. Additional views are recommended for further evaluation. ACR BI-RADS Category 0: Incomplete. (Needs additional imaging evaluation). Result letter will be mailed to the patient. Note: At least 10% of breast cancer is not imaged by mammography. Dictated by: Dictated on workstation # [id number]
== END ==
LOC: RAD 09:30
PROVIDERS: ATTEND Family Medicine
DX: Z12.31 Encounter for screening mammogram for malignant neoplasm of breast (principal)
CPT/HCPCS: 77063; 77067

== ENCOUNTER → 2021-03-19 | Outpatient (CLI) | payer MEDICARE, OTHER ==
--- NOTE | 2021-03-19 09:22 | Diagnostic Imaging Report ---
INDICATION: Abnormal screening mammogram with questionable mass. COMPARISON: 03/14/2021 and 03/05/2020. TECHNIQUE: The current study was also evaluated with a Computer Aided Detection (CAD) system. 3D Tomographic imaging was also performed. FINDINGS: Spot compression views and a true lateral view of the left breast were obtained. The previously described density appears to be superimposed fibroglandular tissue. There is no discrete mass, spiculated lesion, or suspicious calcification identified. There are benign type calcifications. IMPRESSION: Benign findings. ACR BI-RADS Category 2: Benign findings. Result letter will be mailed to the patient. Note: At least 10% of breast cancer is not imaged by mammography. Dictated by: Dictated on workstation # [id number]
== END ==
LOC: RAD 09:15
PROVIDERS: ATTEND Family Medicine
DX: Z12.31 Encounter for screening mammogram for malignant neoplasm of breast (principal)
CPT/HCPCS: 77065; G0279

== ENCOUNTER 2021-05-05 05:45 | Outpatient (CLI) | payer MEDICARE, OTHER ==
[~2021-05-05] VITALS: Ht 160 cm; Wt 62.6 kg
== END 2021-05-05 15:29 | disposition home or self-care (01) ==
LOC: PREOP 05:45
PROVIDERS: ATTEND Surgery
DX: Z01.818 Encounter for other preprocedural examination (principal)

== ENCOUNTER 2021-05-13 07:29 | Day surgery (SDC) | payer MEDICARE, OTHER ==
[2021-05-13] VITALS (8 sets, daily range): BP systolic 101–157; BP diastolic 61–84
[~2021-05-13] VITALS: Ht 160 cm; Wt 62.6 kg
[2021-05-13] MEDS ORDERED: LACTATED RINGERS 1,000 ML IV STA (07:38)
[2021-05-13] MEDS ORDERED: LACTATED RINGERS 1,000 ML IV ONE (07:42)
[2021-05-13] MEDS ORDERED: PROPOFOL INJECTION 50 ML IV ONE (07:44)
[2021-05-13] MEDS ORDERED: MIDAZOLAM 2 MG/2 ML (VERSED) VIAL ONE (07:44)
--- NOTE | 2021-05-13 08:37 | Progress Note-Pre Operative ---
Pre-Operative Progress Note H&P Reviewed The H&P was reviewed, patient examined and no changes noted. Date Seen by Provider: May 13, 2021 Time Seen by Provider: 08:37 Date H&P Reviewed: May 13, 2021 Time H&P Reviewed: 08:37 Pre-Operative Diagnosis: + colFLOYD Morgan DO May 13, 2021 08:37
--- NOTE | 2021-05-13 09:02 | Progress Note-Post Operative ---
Post-Operative Progess Note Surgeon (s)/Sccm Administrator (s) Surgeon FLOYD BURNS DO Sccm Administrator: na Pre-Operative Diagnosis + cologuard Post-Operative Diagnosis mucosal changes of colon, int hemorrhoids Procedure & Operative Findings Date of Procedure 05/13/21 Procedure Performed/Findings colonoscopy c cold biopsies Anesthesia Type per cycle specialist Estimated Blood Loss Estimated blood loss (mL): none Specimens/Packing Specimens Removed descending colon, rectum FLOYD BURNS DO May 13, 2021 09:02
--- NOTE | 2021-05-13 09:04 | Discharge Inst-Simple/Standard ---
Discharge Inst-Standard Discharge Medications New, Converted or Re-Newed RX: RX on Chart Patient Instructions/Follow Up Plan of Care/Instructions/FU: 2 weeks Judy Activity as Tolerated: Yes Discharge Diet: Regular Diet FLOYD BURNS DO May 13, 2021 09:04
--- NOTE | 2021-05-13 14:21 | OPERATIVE REPORT ---
DATE OF SERVICE: 05/13/2021 PREOPERATIVE DIAGNOSIS: Positive Cologuard. POSTOPERATIVE DIAGNOSIS: Mucosal changes of the colon, internal hemorrhoids. PROCEDURE: Colonoscopy with cold biopsies. SURGEON: Floyd Kim DO ANESTHESIA: Per DIRECTOR OF USER EXPERIENCE. ESTIMATED BLOOD LOSS: None. COMPLICATIONS: None. SPECIMENS: Descending colon and rectum. No mucosal changes. DESCRIPTION OF PROCEDURE: The patient was taken to the endoscopy suite, placed in left lateral recumbent position. Timeout was performed. Digital rectal exam was performed noting internal hemorrhoids. No palpable polyps, masses or ulcerations. Scope was inserted in the rectum and advanced all the way to cecum with minimal difficulty. Prep was adequate. Scope was slowly retracted back. No polyps, masses or ulcerations in the cecum, ascending, transverse colon. In the descending colon, some slight erythematous mucosal changes present. Cold biopsy was obtained. Scope was then continuously retracted back. No polyps, masses or ulcerations. Scope was then continuously retracted back through the sigmoid colon without any other pathology noted. Once in the rectum, again noting some erythematous mucosal changes. Biopsy of this area was obtained. Scope was retroflexed noting hemorrhoids. No other pathology. Scope was returned to its normal position, slowly withdrawn until completely removed. The patient tolerated procedure well without any complications. She was taken to recovery room in stable condition. RECOMMENDATIONS: The patient will follow up in the office in few weeks to discuss pathology results and see how her symptoms are doing. The patient only needs a colonoscopy on an as needed basis if she has any change in condition or symptoms. Job ID: [id number] DocumentID: [id number] Dictated Date: 05/13/2021 09:06:14 Filter Tender Date: 05/13/2021 14:20:47 Dictated By: FLOYD KIM DO
--- NOTE | 2021-05-13 15:03 | Anesthesia-General Post-Op ---
MAC Patient Condition Mental Status/LOC: Same as Preop Cardiovascular: Satisfactory Nausea/Vomiting: Absent Respiratory: Satisfactory Pain: Controlled Complications: Absent Post Op Complications Complications None Follow Up Care/Instructions Patient Instructions None needed. Anesthesiology Discharge Order Discharge Order Patient is doing well, no complaints, stable vital signs, no apparent adverse anesthesia problems. No complications reported per nursing. SHAHNAZ RICHARDS CRNA May 13, 2021 15:03
== END 2021-05-13 09:55 | disposition home or self-care (01) ==
LOC: ENDO 07:29
PROVIDERS: ATTEND Surgery
DX: K63.89 Other specified diseases of intestine (principal); K62.89 Other specified diseases of anus and rectum; K64.8 Other hemorrhoids; R19.5 Other fecal abnormalities; I65.29 Occlusion and stenosis of unspecified carotid artery; I25.119 Atherosclerotic heart disease of native coronary artery with unspecified angina pectoris; I11.9 Hypertensive heart disease without heart failure; E78.00 Pure hypercholesterolemia, unspecified; E78.5 Hyperlipidemia, unspecified; Z79.82 Long term (current) use of aspirin; Z87.891 Personal history of nicotine dependence; Z95.5 Presence of coronary angioplasty implant and graft; Z79.899 Other long term (current) drug therapy; Z88.0 Allergy status to penicillin; Z90.710 Acquired absence of both cervix and uterus
CPT/HCPCS: 88305

== ENCOUNTER → 2022-03-16 | Outpatient (CLI) | payer MEDICARE, OTHER ==
[~2022-03-16] MED LIST changes: +BISO-2 PO; -BISO1TAB3 PO
--- NOTE | 2022-03-16 11:47 | Diagnostic Imaging Report ---
INDICATION: Routine screening Comparison is made with prior mammogram from 03/14/2021 and 03/05/2020. 2-D and 3-D bilateral screening mammography was performed with CAD. Both breasts are heterogeneously dense, limiting the sensitivity of mammography. There are scattered benign calcifications. Overall parenchymal pattern appears stable. No mass or malignant-appearing microcalcifications are seen. Axillae are unremarkable. IMPRESSION: No mammographic features suspicious for malignancy are identified. ACR BI-RADS Category 2: Benign findings. Result letter will be mailed to the patient. Note: At least 10% of breast cancer is not imaged by mammography. BI-RADS Category 2 Dictated by: Dictated on workstation # [id number]
== END ==
LOC: RAD 09:45
PROVIDERS: ATTEND Family Medicine
DX: Z12.31 Encounter for screening mammogram for malignant neoplasm of breast (principal)
CPT/HCPCS: 77063; 77067

== ENCOUNTER → 2022-10-19 | Outpatient (CLI) | payer MEDICARE, OTHER | LOC: CARD 08:10 | PROVIDERS: ATTEND Nurse Practitioner Family | DX: I08.0 Rheumatic disorders of both mitral and aortic valves (principal); I25.10 Atherosclerotic heart disease of native coronary artery without angina pectoris | CPT/HCPCS: 93306 ==

== ENCOUNTER → 2022-11-10 | Outpatient (CLI) | payer MEDICARE, OTHER ==
[~2022-11-10] MED LIST changes: +CATHETER FLUSH 10 ML SYR IVP PRN; +REGADENOSON 0.4 MG/5 ML SYR (LEXISCAN) IV ONE
[2022-11-10 12:54] VITALS: BP 203/67
--- NOTE | 2022-11-11 10:10 | STRESS TEST ---
DATE OF SERVICE: 11/10/2022 RESTING AND POST REGADENOSON TECHNETIUM-99M TETROFOSMIN SPECT CT IMAGING ORDERING PHYSICIAN: Mirtha Schneider APRN. PRIMARY PHYSICIAN: Dr. Bullock. CLINICAL DIAGNOSIS: Coronary artery disease. Baseline images were carried out after injection of 10.96 mCi of technetium-99m tetrofosmin. This was followed by 0.4 mg regadenoson and 31.47 mCi of technetium-99m tetrofosmin for stress imaging. The electrocardiogram showed sinus rhythm at baseline. An old septal myocardial infarction cannot be excluded. The electrocardiogram did not exhibit significant change with the regadenoson infusion. The patient tolerated the procedure well. Review of images at rest and following stress indicates a small transient anterolateral perfusion defect. SDS is 4. Gated images show normal global left ventricular systolic function with normal regional wall motion. Left ventricular ejection fraction is calculated to be 69%. CONCLUSIONS: This study suggests a minimal/small amount of anterolateral ischemia. This does not appear to be significantly changed compared to the study of November 2019. Gated images show normal global left ventricular systolic function and normal regional wall motion. Left ventricular ejection fraction is calculated to be 69%. Job ID: [id number] DocumentID: [id number] Dictated Date: 11/11/2022 09:16:48 Senior Graphic Designer Date: 11/11/2022 10:08:00 Dictated By: WHIT LANDEROS MD; MARTINA; FACP; FACC;
== END ==
LOC: CARD 10:43
PROVIDERS: ATTEND Nurse Practitioner Family
DX: I25.10 Atherosclerotic heart disease of native coronary artery without angina pectoris (principal)
CPT/HCPCS: 78452; 93017; A9502

== ENCOUNTER → 2023-04-07 | Outpatient (CLI) | payer MEDICARE, OTHER ==
[~2023-04-07] MED LIST changes: -CATHETER FLUSH 10 ML SYR IVP PRN; -REGADENOSON 0.4 MG/5 ML SYR (LEXISCAN) IV ONE
--- NOTE | 2023-04-07 10:07 | Diagnostic Imaging Report ---
INDICATION: Right breast asymmetry laterally is partially persistent on diagnostic and spot compression views. Ultrasound is being performed as further evaluation. FINDINGS: 7 cm from the nipple in the lateral aspect of the right breast corresponding to mammographic asymmetry, there are tiny benign breast cysts. The largest of these measures 5 mm with the others measuring 3 mm maximally. No vascularized, solid, complex, or suspicious lesion. No further workup for this benign finding is necessary. Assuming the absence of any adverse interval clinical change, this patient can be returned to routine bilateral screening mammography due next in 1 year. IMPRESSION: Tiny benign breast cysts (subcentimeter) correlate with the mammographic asymmetry. No further workup is needed. ACR BI-RADS Category 2: Benign findings. Dictated by: Dictated on workstation # [id number]
--- NOTE | 2023-04-07 10:11 | Diagnostic Imaging Report ---
INDICATION: Screening views dated 03/16/2023 showed asymmetry in the right breast posterior to the nipple line, most conspicuous laterally in the tomosynthesis views. TECHNIQUE: Unilateral right 2D and 3D digital diagnostic mammography with CAD was performed. BREAST DENSITY: 2. FINDINGS: There is incomplete dispersal of fibroglandular elements with spot compression, predominantly over the lateral aspect of the right breast. Sonographic correlation shows tiny 3 mm and 5 mm benign cystS in this region with no solid vascularized or suspicious breast mass. There are scattered benign calcifications, stable from multiple priors. No spiculated lesion or architectural distortion. IMPRESSION: Tiny benign lateral right breast cysts account for the mammographic asymmetry and require no further workup. Assuming the absence of adverse interval clinical change, this patient can be returned to routine bilateral screening views due next in 1 year. ACR BI-RADS Category 2: Benign findings. Result letter will be mailed to the patient. Note: At least 10% of breast cancer is not imaged by mammography. Dictated by: Dictated on workstation # [id number]
== END ==
LOC: RAD 08:51
PROVIDERS: ATTEND Family Medicine
DX: N60.11 Diffuse cystic mastopathy of right breast (principal)
CPT/HCPCS: 76642; 77065; G0279